=== PATIENT | female | born 1990 | race Asian ===

== ENCOUNTER 2023-06-04 16:57 | Emergency (ER) | payer OTHER ==
[~2023-06-04] VITALS: Ht 157.5 cm; Wt 57.7 kg
[2023-06-04] MEDS ORDERED: VITA500C24 PO (17:15)
[2023-06-04] MEDS ORDERED: DELS1LIQ3 PO (17:15)
[2023-06-04 20:44] LABS: RSV AMPLIFICATION NEGATIVE (NEGATIVE)
[2023-06-04] MEDS ORDERED: BENZ200C70 PO (22:05)
[2023-06-04] MEDS ORDERED: VENTAER INH (22:07)
[2023-06-04 22:12] VITALS: BP 143/87; TEMP 98.8; O2SAT 98
== END 2023-06-04 22:13 | disposition home or self-care (01) ==
LOC: M ED 16:57
DX: J06.9 Acute upper respiratory infection, unspecified (principal); Z79.52 Long term (current) use of systemic steroids; Z79.899 Other long term (current) drug therapy